=== PATIENT | male | born 1945 | race Caucasian/White ===

== ENCOUNTER 2018-06-21 00:05 | Emergency (ER) | payer MEDICARE, OTHER ==
[2018-06-21 00:42] LABS: GLUCOSE, URINE (UA) NEGATIVE (NEGATIVE); KETONES,URINE (UA) NEGATIVE (NEGATIVE); LEUKOCYTE ESTERASE, URINE NEGATIVE (NEGATIVE); NITRITE,URINE NEGATIVE (NEGATIVE); OCCULT BLOOD,URINE LARGE (NEGATIVE); PROTEIN,URINE >=300 mg/dL (NEGATIVE); UROBILINOGEN,URINE 0.2 (NORMAL) E.U./dL (NORMAL)
[2018-06-21 00:45] LABS: CLARITY,URINE SL. CLOUDY (CLEAR)
[2018-06-21 00:46] LABS: BACTERIA,URINE Many /HPF (None Seen); MUCUS,URINE Marked Strands; RBC,URINE TNTC /HPF (0-5); SQUAMOUS EPITHELIAL CELL,UR NONE SEEN (<= Few)
[2018-06-21 00:47] LABS: ICTOTEST,URINE NEGATIVE
[2018-06-21 00:48] LABS: BILIRUBIN,URINE NEGATIVE (NEGATIVE)
[2018-06-21 01:07] LABS: BASOPHILS # (AUTO) 0.1 10^3/uL (0.0-0.1); BASOPHILS % (AUTO) 1.3 %; EOSINOPHILS # (AUTO) 0.2 10^3/uL (0.0-0.7); EOSINOPHILS % (AUTO) 2.2 %; LYMPHOCYTES # (AUTO) 1.8 10^3/uL (1.5-3.5); LYMPHOCYTES % (AUTO) 22.3 %; MEAN CORPUSCULAR HEMOGLOBIN 30.6 pg (27.0-31.0); MEAN CORPUSCULAR HGB CONC 34.5 g/dL (32.0-36.0); MEAN CORPUSCULAR VOLUME 88.6 fL (80.0-94.0); MEAN PLATELET VOLUME 8.6 fL (7.4-11.4); MONOCYTES # (AUTO) 0.5 10^3/uL (0.0-1.0); MONOCYTES % (AUTO) 6.8 %; NEUTROPHILS # (AUTO) 5.4 10^3/uL (1.5-6.6); NEUTROPHILS % (AUTO) 67.4 %; PLT - PLATELET COUNT 222 10^3/uL (130-450); RED BLOOD COUNT 4.26 10^6/uL (4.70-6.10); RED CELL DISTRIBUTION WIDTH 13.6 % (12.0-15.0)
[2018-06-21 01:10] LABS: INR 1.1 (0.8-1.2)
[2018-06-21 01:11] LABS: CALCIUM 9.2 mg/dL (8.5-10.3)
[2018-06-21] MEDS ORDERED: cephALEXin 250 MG CAPSULE PO STA (01:18)
--- NOTE | 2018-06-21 01:18 | ED Physician Documentation ---
History of Present Illness - Stated complaint Stated Complaint: MALE - Chief complaint Chief Complaint: General - History obtained from History obtained from: Patient - Additonal information Additional information: 72-year-old male presents the emergency department with hematuria which started earlier this morning. The patient reports bright red blood. The patient denies any significant pain or discomfort. The patient denies taking any anticoagulants. The patient denies nausea, vomiting, diarrhea, focal abdominal pain or new sexual contacts. No history of similar. Symptoms are described as moderate. No other associated symptoms. Review of Systems Constitutional: denies: Fever, Chills Eyes: denies: Discharge Nose: denies: Congestion Throat: denies: Sore throat Respiratory: denies: Cough GI: denies: Abdominal Pain, Nausea, Vomiting, Diarrhea : reports: Hematuria. denies: Unable to Void Skin: denies: Rash PD PAST MEDICAL HISTORY - Past Medical History Cardiovascular: Hypertension, High cholesterol Endocrine/Autoimmune: HyPOthyroidism - Past Surgical History Past Surgical History: Yes HEENT: Cataracts, Tonsil/Adenoidectomy - Present Medications Home Medications: Ambulatory Orders Medication Instructions Recorded Confirmed Atorvastatin Calcium 40 mg PO 08/18/16 Clindamycin HCl [Cleocin HCl] 300 mg PO TID #20 capsule 08/18/16 Levothyroxine Sodium 150 mcg PO 08/18/16 Losartan/Hydrochlorothiazide 1 each PO 08/18/16 08/18/16 [Losartan-Hctz 100-25 mg Tab] Metoprolol Succinate 50 mg PO 08/18/16 Cephalexin [Keflex] 500 mg PO BID #14 capsule 06/21/18 - Allergies Allergies/Adverse Reactions: Allergies Allergy/AdvReac Type Severity Reaction Status Date / Time No Known Drug Allergies Allergy Verified 06/21/18 00:08 - Social History Does the pt smoke?: Yes Smoking Status: Current every day smoker Does the pt drink ETOH?: Yes Does the pt have substance abuse?: No - Immunizations Immunizations are current?: Yes PD ED PE NORMAL - General General: Alert and oriented X 3, No acute distress - HEENT HEENT: Atraumatic, PERRL, EOMI - Abdomen Abdomen: Soft, Non tender, Non distended - Derm Derm: Normal color - Neuro Neuro: Alert and oriented X 3, Normal speech - Psych Psych: Normal affect Results - Vitals Vitals: Vital Signs - 24 hr 06/21/18 00:08 Temperature 36.8 C Heart Rate 91 Respiratory 18 Rate Blood Pressure 178/79 H O2 Saturation 100 Oxygen O2 Source Room air - Labs Labs: Laboratory Tests 06/21/18 06/21/18 06/21/18 00:27 00:50 00:50 WBC 8.0 RBC 4.26 L Hgb 13.0 L Hct 37.8 L MCV 88.6 MCH 30.6 MCHC 34.5 RDW 13.6 Plt Count 222 MPV 8.6 Neut # (Auto) 5.4 Lymph # (Auto) 1.8 Sharkey # (Auto) 0.5 Eos # (Auto) 0.2 Baso # (Auto) 0.1 Absolute Nucleated RBC 0.00 Nucleated RBC % 0.0 Sodium 139 Potassium 3.8 Chloride 104 Carbon Dioxide 26 Anion Gap 9.0 BUN 19 Creatinine 1.0 Estimated GFR (MDRD) 73 L Glucose 112 H Calcium 9.2 Urine Color BROWN Urine Clarity SL. CLOUDY Urine pH 6.0 Ur Specific [place] >=1.030 H Urine Protein >=300 Urine Glucose (UA) NEGATIVE Urine Ketones NEGATIVE Urine Occult Blood LARGE H Urine Nitrite NEGATIVE Urine Bilirubin NEGATIVE Urine Urobilinogen 0.2 (NORMAL) Ur Leukocyte Esterase NEGATIVE Urine RBC TNTC H Urine WBC 0-3 Ur Squamous Epith Cells NONE SEEN Urine Bacteria Many H Urine Mucus Marked Strands Ur Microscopic Review INDICATED Urine Culture Comments INDICATED PD MEDICAL DECISION MAKING - ED course ED course: The patient will be treated for a presumed urinary tract infection. The patient will be given a prescription for Keflex and have advised close follow- up with primary care. I recommended that if his symptoms do not improve that he will need a urology consultation. Unfortunately, our facility does not have a urologist on duty so he will need to get that referral from his primary care doctor. I discussed warning signs and recommended returning to the emergency department immediately for worsening or concerns. Currently, the patient appears appropriate for discharge and outpatient management. - Sepsis Event Vital Signs: Vital Signs - 24 hr 06/21/18 00:08 Temperature 36.8 C Heart Rate 91 Respiratory 18 Rate Blood Pressure 178/79 H O2 Saturation 100 Oxygen O2 Source Room air Departure - Departure Disposition: 01 Home, Self Care Clinical Impression: Hematuria Qualifiers: Hematuria type: unspecified type Qualified Code(s): R31.9 - Hematuria, unspecified Condition: Good Instructions: Hematuria Poss Causes Follow-Up: Saravanan Gandhi MD [Primary Care Provider] - Within 1 week (If your symptoms are not improving please ask your primary care physician to arrange for a follow-up urology consultation) Prescriptions: Cephalexin [Keflex] 500 mg PO BID #14 capsule Comments: Please return to the emergency department immediately for worsening symptoms or any concerns
[2018-06-21 01:28] VITALS: BP 160/80
== END 2018-06-21 01:27 | disposition home or self-care (01) ==
LOC: ED 00:05
DX: R31.0 Gross hematuria (principal); I10 Essential (primary) hypertension; F17.200 Nicotine dependence, unspecified, uncomplicated
CPT/HCPCS: 36415; 80048; 81001; 85025; 85610; 85730; 87086; 99283; A9270; 81003

== ENCOUNTER 2018-07-09 10:48 | Outpatient (CLI) | payer MEDICARE, OTHER ==
[2018-07-09] MEDS ORDERED: IOPAMIDOL-300 100 ML VIAL ONE (11:25)
[2018-07-09] MEDS ORDERED: IOPAMIDOL-300 100 ML VIAL IVP ONE (11:58)
--- NOTE | 2018-07-09 16:44 | CT Report ---
Reason: HEMATAURIA Procedure Date: 07/09/2018 Accession Number: [id number] / [id number] Procedure: CT - Abdomen/Pelvis W/WO CPT Code: FULL RESULT: EXAM: CT ABDOMEN WITHOUT AND WITH CONTRAST EXAM DATE: 07/09/2018 12:33 PM. HISTORY: Hematuria. COMPARISON: None. TECHNIQUE: Routine helical CT imaging was performed through the abdomen before and after administration of IV contrast: CE. Enteric contrast: No. Reconstruction: Coronal and sagittal. In accordance with CT protocol optimization, one or more of the following dose reduction techniques were utilized for this exam: automated exposure control, adjustment of mA and/or KV based on patient size, or use of iterative reconstructive technique. FINDINGS: Lung Bases: Dependent changes are seen at the lung bases. Liver: Normal. No masses. Gallbladder/Bile Ducts: Cholelithiasis. Spleen: Normal. Pancreas: Normal. No masses or ductal obstruction. Adrenal Glands: Normal. Kidneys: There is a mildly hyperdense renal cyst which measures 2 cm in the right kidney, demonstrates thin septations and no definite enhancement, low suspicion. There are bilateral renal hypodensities which are too small to characterize. There is an asymmetric left-sided bladder mass near the left ureterovesicular junction which measures up to 1.8 cm, separate from the mass effect upon the bladder by the prostate. Peritoneal Cavity/Bowel: Normal. No free fluid, free air or adenopathy. No masses or acute inflammatory process. The appendix is well visualized and normal. Vasculature: Atherosclerotic aorta without aneurysm. Bones: No aggressive osseous lesions. Other: None. IMPRESSION: Left bladder base mass, recommend cystoscopy. Findings are suspicious for malignancy. RADIA
== END 2018-07-09 10:49 | disposition home or self-care (01) ==
LOC: DI 10:48
PROVIDERS: ATTEND Nurse Practitioner Family
DX: R31.9 Hematuria, unspecified (principal); N32.89 Other specified disorders of bladder
CPT/HCPCS: 74178; Q9967

== ENCOUNTER 2018-08-19 23:43 | Emergency (ER) | payer MEDICARE, OTHER ==
[2018-08-20 00:22] LABS: OCCULT BLOOD,URINE LARGE (NEGATIVE)
[2018-08-20 00:28] LABS: CLARITY,URINE CLOUDY (CLEAR); ICTOTEST,URINE NEGATIVE
[2018-08-20 00:30] LABS: BILIRUBIN,URINE NEGATIVE (NEGATIVE)
[2018-08-20 00:31] LABS: BACTERIA,URINE Rare /HPF (None Seen); RBC,URINE TNTC /HPF (0-5); SQUAMOUS EPITHELIAL CELL,UR RARE Squamous (<= Few)
--- NOTE | 2018-08-20 00:47 | ED Physician Documentation ---
PD HPI MALE - Stated complaint Stated Complaint: MALE /POST OP - Chief complaint Chief Complaint: Abd Pain - Additional information Additional information: 72-year-old male Presentsto the emergency department for evaluation of urinary retention. The patient is status post surgery today and developed an inability Urinate this evening. Symptoms are described as severe. No relieving factors. No other associated symptoms. Review of Systems Constitutional: denies: Fever Eyes: denies: Discharge Cardiac: denies: Chest pain / pressure Respiratory: denies: Cough GI: reports: Abdominal Pain : reports: Unable to Void Immunocompromised: denies: Chemotherapy PD PAST MEDICAL HISTORY - Past Medical History Past Medical History: Yes Cardiovascular: Hypertension, High cholesterol Endocrine/Autoimmune: HyPOthyroidism - Past Surgical History Past Surgical History: Yes HEENT: Cataracts, Tonsil/Adenoidectomy - Present Medications Home Medications: Ambulatory Orders Medication Instructions Recorded Confirmed Atorvastatin Calcium 40 mg PO 08/18/16 Clindamycin HCl [Cleocin HCl] 300 mg PO TID #20 capsule 08/18/16 Levothyroxine Sodium 150 mcg PO 08/18/16 Losartan/Hydrochlorothiazide 1 each PO 08/18/16 08/18/16 [Losartan-Hctz 100-25 mg Tab] Metoprolol Succinate 50 mg PO 08/18/16 Cephalexin [Keflex] 500 mg PO BID #14 capsule 06/21/18 - Allergies Allergies/Adverse Reactions: Allergies Allergy/AdvReac Type Severity Reaction Status Date / Time No Known Drug Allergies Allergy Verified 08/19/18 23:49 - Social History Does the pt smoke?: Yes Smoking Status: Current every day smoker Does the pt drink ETOH?: Yes Does the pt have substance abuse?: No - Immunizations Immunizations are current?: Yes - POLST Patient has POLST: No PD ED PE NORMAL - General General: Alert and oriented X 3 - HEENT HEENT: Atraumatic, PERRL, EOMI - Abdomen Abdomen: Soft, Non distended. No: Non tender (Suprapubic tenderness) - Extremities Extremities: No deformity - Neuro Neuro: Alert and oriented X 3, Normal speech - Psych Psych: Normal affect Results - Vitals Vitals: Vital Signs - 24 hr 08/19/18 08/20/18 23:46 00:16 Temperature 36.3 C L 37.1 C Heart Rate 89 76 Respiratory 16 14 Rate Blood Pressure 154/70 H 122/67 O2 Saturation 96 95 Oxygen O2 Source Room air - Labs Labs: Laboratory Tests 08/20/18 00:10 Urine Color BROWN Urine Clarity CLOUDY Urine pH Ur Specific [place] Urine Protein Urine Glucose (UA) Urine Ketones Urine Occult Blood LARGE H Urine Nitrite Urine Bilirubin NEGATIVE Urine Urobilinogen Not Reportable Ur Leukocyte Esterase Urine RBC TNTC H Urine WBC 0-3 Ur Squamous Epith Cells RARE Squamous Urine Bacteria Rare Ur Microscopic Review INDICATED Urine Culture Comments Not Reportable PD MEDICAL DECISION MAKING - ED course ED course: A Morris catheter was placed and the patient has significant improvement. The patient is currently on antibiotics from the surgery. The patient is going to follow-up with urology tomorrow. I discussed warning signs and recommended returning to the emergency department immediately for any worsening or any concerns Departure - Departure Disposition: 01 Home, Self Care Clinical Impression: Urinary retention Condition: Good Instructions: ED Catheter Care Morris, ED Retention Urinary Male Follow-Up: Saravanan Gandhi MD [Primary Care Provider] - Within 3 Days Comments: Please follow-up with your urologist tomorrow for further management of your catheter. Please return to the emergency department immediately for worsening symptoms or any concerns.
[2018-08-20 01:03] VITALS: BP 134/68
== END 2018-08-20 01:03 | disposition home or self-care (01) ==
LOC: ED 23:43
DX: R33.9 Retention of urine, unspecified (principal); I10 Essential (primary) hypertension; E78.00 Pure hypercholesterolemia, unspecified; E03.9 Hypothyroidism, unspecified; F17.200 Nicotine dependence, unspecified, uncomplicated
CPT/HCPCS: 51702; 81001; 81003; 87086; 99283

== ENCOUNTER 2019-05-31 08:30 | Outpatient (CLI) | payer MEDICARE, OTHER | END 2019-05-31 08:31 | disposition home or self-care (01) | LOC: LAB.S 08:30 | PROVIDERS: ATTEND Urology | DX: C67.9 Malignant neoplasm of bladder, unspecified (principal); Z12.5 Encounter for screening for malignant neoplasm of prostate | CPT/HCPCS: 36415; G0103; 84153 ==

== ENCOUNTER 2020-02-10 10:23 | Outpatient (CLI) | payer MEDICARE, OTHER ==
--- NOTE | 2020-02-10 16:44 | MRI Report ---
Reason: TROCHANTERIC BURSITIS, LT HIP Procedure Date: 02/10/2020 Accession Number: [id number] / [id number] Procedure: MRI - Hip LT W/O CPT Code: Final Report FULL RESULT: EXAM: LEFT HIP MRI WITHOUT CONTRAST EXAM DATE: 02/10/2020 11:40 AM. CLINICAL HISTORY: Trochanteric bursitis, left hip. COMPARISON: ABDOMEN/PELVIS W/WO 07/09/2018 11:54 AM. TECHNIQUE: Multiplanar, multisequence T1-weighted and fluid-sensitive, small afdih-in-rhva sequences of the hip and large [id number]-hpna sequences of the pelvis without contrast. Other: None. FINDINGS: Bones and articular surfaces: No significant hip joint effusion. Mild cartilage thinning and surface irregularity in the superior right hip joint. Small amount of associated acetabular and femoral head subchondral marrow edema. Left hip labrum grossly intact. No evidence of an acute fracture or stress reaction. No evidence of femoral head AVN. Asymmetric degenerative change at the left sacroiliac joint with subcortical marrow edema at the upper sacral aspect of the joint anteriorly. No definite joint effusion. No appreciable erosive change. Right sacroiliac joint appears unremarkable. Pubic symphysis unremarkable. Musculotendinous structures: No evidence of significant muscle tear, tendinosis or bursitis. No significant muscle edema, atrophy or fatty replacement within the field of view. Miscellaneous: Small fat-containing right inguinal hernia. IMPRESSION: 1. Mild left hip osteoarthritis. 2. Asymmetric arthritic change at the left sacroiliac joint with marrow edema on the sacral side of the joint as well as a small amount of soft tissue edema anterior to the joint. Associated bridging anterior osteophyte better seen on prior CT exam. 3. No evidence of bursitis. RADIA
== END 2020-02-10 10:24 | disposition home or self-care (01) ==
LOC: DI 10:23
PROVIDERS: ATTEND Orthopaedic Surgery
DX: M16.12 Unilateral primary osteoarthritis, left hip (principal); M47.898 Other spondylosis, sacral and sacrococcygeal region

== ENCOUNTER 2020-03-21 09:48 | Outpatient (CLI) | payer MEDICARE, OTHER | END 2020-03-21 09:49 | disposition home or self-care (01) | LOC: LAB.S 09:48 | PROVIDERS: ATTEND Urology | DX: C61 Malignant neoplasm of prostate (principal) | CPT/HCPCS: 36415; 84153 ==

== ENCOUNTER 2020-06-05 12:07 | Outpatient (CLI) | payer MEDICARE, OTHER | END 2020-06-05 12:08 | disposition home or self-care (01) | LOC: LAB.S 12:07 | PROVIDERS: ATTEND Urology | DX: R30.0 Dysuria (principal) | CPT/HCPCS: 87086 ==

== ENCOUNTER 2021-05-17 11:00 | Outpatient (CLI) | payer MEDICARE, OTHER | END 2021-05-17 11:01 | disposition home or self-care (01) | LOC: LAB.S 11:00 | PROVIDERS: ATTEND Urology | DX: C61 Malignant neoplasm of prostate (principal) | CPT/HCPCS: 36415; 84153 ==

== ENCOUNTER 2024-06-01 12:45 | Outpatient (CLI) | payer MEDICARE, OTHER ==
--- NOTE | 2024-06-01 13:55 | CARDIAC PROCEDURE NOTE ---
Stress Test Report Service Date: 06/01/24 Service Time: 13:00 Ordering Provider: Stanton Green PAC Indication for Test: Cardiovascular risk stratification. Significant Medical History: "Jonathan" is referred for an exercise tolerance test today, as the last component of a extended workup for symptoms that began several months ago, primarily consisting of dizzy spells with orthostatic blood pressure changes. His blood pressure meds were adjusted with reduction in positional BP changes and he underwent an ENT evaluation that pointed toward an inner ear abnormality, not responsive to Lisa maneuver, but for which he is undergoing extended vestibular physical therapy, with incremental improvement. He remains active, golfing several times weekly, without limitation by any chest pressure, discomfort or pain, or unexpected shortness of breath. He does not feel that his stamina has decreased. A component of his blood pressure regimen includes extended release metoprolol and his last dose was approximately 30 hours ago. Cardiac Risk Factors: Positive for hypertension, treated for at least 30 years, "prediabetes", hyperlipidemia on atorvastatin 40 mg daily (lipids in 05/03 included Total cholesterol 183, LDL-C 104, HDL-C 55, TG 120), history of longstanding intermittent cigar smoking, but no regular cigarette smoking history; no known family history of vascular diseases, such as heart attack or stroke. Type of Stress Test: Exercise Treadmill Test (ETT) Procedure: -Exercise Treadmill Test- After signing informed consent, the patient performed treadmill exercise using a Valeriano protocol. The patient exercised for 4 minutes 43 seconds and achieved a peak heart rate of 128 (91 percent predicted maximum heart rate for age), and an estimated workload of 6.7 METS. The test was terminated due to fatigue/shortness of breath. Resting heart rate: 77 Peak heart rate: 128 Normal response to exercise. Resting BP: 135/72 Peak BP: 200/74 Normal BP response to exercise. Room air oxygen saturation during exercise ranged between 95-98%. Rhythm during exercise: Normal sinus rhythm throughout, with rare isolated PVCs (18 tabulated). Symptoms: The patient denied experiencing any chest pressure/tightness/discomfort. EKG at rest showed normal sinus rhythm with mild first degree AV block (LA=0.22 sec). EKG at peak stress showed horizontal ST depression of >1.0 mm severity in leads II,III,aVf and V4-V6, meeting EKG diagnostic criteria for ishemia. In Recovery HR and BP normally decreased towards resting levels (HR 95, BP 157/73 at 5:00). No imaging was ordered with this stress test. I, Leon Greene MD, was present throughout this treadmill stress study and supervised it in its entirety. Summary: 1) Exercise tolerance was mildly below average for a 69-yr old man (value not available for a 78 yr old) as evidenced by SILVANA of 17%. 2) Normal resting EKG. 3) Adequate level of exercise was achieved on this treadmill stress test. 4) Normal BP response to exercise. 5) ST depression meeting EKG diagnostic criteria for ischemia were seen at peak stress. 6) No imaging was ordered with this test. Conclusions and Recommendations: 1) Somewhat unexpectedly, Jonathan's stress EKG shows ST depression of sufficient magnitude to be consistent with cardiac ischemia, even though he has not experienced spontaneous anginal symptoms prior to today, nor during today's test. 2) Although it seems unlikely that this represents a true positive result, I am advising that he be referred back for a repeat stress test with imaging, which we could do here at [facility] with a treadmill stress echocardiogram, or he could have a treadmill stress nuclear study done elsewhere. I have texted Dr. Pawan Cox, supervising physician for the ordering provider (GRACIE Lyn), recommending that repeat stress testing with imaging be performed, for improved sensitivity and specificity with regard to ischemia. In the interim I do not believe that the patient needs to modify his activities, in fact he will be competing tomorrow in the fundraising golf event for [facility] to be held at the [email or web address] and [place].
== END 2024-06-01 12:46 | disposition home or self-care (01) ==
LOC: DI 12:45
PROVIDERS: ATTEND Student in an Organized Health Care Education/Training Program
DX: R06.02 Shortness of breath (principal); R53.83 Other fatigue; R42 Dizziness and giddiness; I10 Essential (primary) hypertension; R73.03 Prediabetes; E78.5 Hyperlipidemia, unspecified; Z79.899 Other long term (current) drug therapy
CPT/HCPCS: 93017